=== PATIENT | female | born 1935 | race Caucasian/White ===

== ENCOUNTER 2017-12-24 11:33 | Inpatient (IN) | payer MEDICARE, OTHER ==
[~2017-12-24] VITALS: Ht 157.5 cm; Wt 63.0 kg
[2018-01-03] MEDS ORDERED: DURAGESIC1 EAC2 TD (15:14)
[2018-01-03] MEDS ORDERED: DETROL LA4 MG PO (15:15)
[2018-01-03] MEDS ORDERED: PRILOSEC OTC20 MG PO (15:16)
[2018-01-03] MEDS ORDERED: MIRALAX17 GM PO (15:16)
[2018-01-03] MEDS ORDERED: VOLTAREN-XR100 MG PO (15:16)
[2018-01-03] MEDS ORDERED: VITAMIN D32000 UNI1 PO (15:17)
[2018-01-03] MEDS ORDERED: VITAMIN B122500 MCG PO (15:17)
[2018-01-03] MEDS ORDERED: VITAMIN E400 UNIT PO (15:18)
[2018-01-03] MEDS ORDERED: ENDOCET 10-3251 EACH PO (15:54)
[2018-01-03] MEDS ORDERED: DIAZEPAM5 MG PO (15:54)
[2018-01-03] MEDS ORDERED: ENALAPRIL-HCTZ1 EACH PO (15:55)
--- NOTE | 2018-01-15 12:58 | NUR ---
01/15/18 1258 Sara Putnam 1153 PT ARRIVED IN PACU SLEEPY WITH NO C/O'S. NG TO LOW INTERMITENT SUCTION. 12OO XRAY IN ROOM DOING PCXR. C/O NAUSEA AND ABD PAIN DURING XRAY. 1214 ZOFRAN 4MG IV GIVEN. 1217 FENTANYL 50MCG GIVEN IVP. UNABLE TO RATE PAIN AT THIS TIME. 1217 ANCEF 2GM IV GIVEN PER DR ORDERS. OXYGEN REMOVED AND PLACED ON BB AT 6L WITH SATS 98%. COOL CLOTH TO FOREHEAD. 1230 RESTING. REU. SATS 95% ON RA. 1240 C/O NAUSEA. PHENERGAN 6.25MG GIVEN SLOW IVP.
--- NOTE | 2018-01-15 14:43 | NUR ---
VISITED WITH PT'S DAUGHTER RANJITH AND KENZIE AFTER PT WAS MOVED FROM PACU TO M/S 109. RANJITH LOZANOTTLE EMOTIONAL, SHE STATED JUST A LITTLE RELEASE AFTER THE SURGERY. SURGERY MUCH MORE EXTENSIVE THAN PLANNED ACCORDING TO RANJITH. PT STILL NOT QUITE AWAKE. WILL CONTINUE TO FOLLOW NEEDED
--- NOTE | 2018-01-15 14:44 | NUR ---
1425 - VS WITHING NL, MORE AWAKE, NGT PATENT TO LOW INTERMITENT WALLL SUCTION. ABD DRESSING CDI, HALLE AND ONQ PUMP PATENT. FAMILY AT BEDSIDE AT BEDSIDE
--- NOTE | 2018-01-15 15:00 | NUR ---
RN IN ROOM.
--- NOTE | 2018-01-15 15:25 | NUR ---
SHAPER SETTER FENTANYL STARTED, PT INSTRUCTED ON SHAPER SETTER USAGE AND SIDE EFFECTS. STATED UNDERSTANDING. TOLERATING SIPS OF ROOM TEMP LIQUIDS, HOB ELEVATED AT 45o. NGT R NARE TO LCWS, WITH VERY SCANT AMOUNT OF CLEAR DRAINAGE. ABD DRESSING MIDLINE MEPILEX AND OPSITE DRESSING CDI, HALLE WITH SANGUINEOUS DRAINAGE, AND ONQ PUMP X2 SITES WITH BROWN DRAINAGE. F/C PATENT DRAINING DARK YELLOW URINE. SCDS IN PLACE. PT MORE AWAKE VISITING WITH FAMILY.
--- NOTE | 2018-01-15 16:25 | NUR ---
AWAKE, VISITING WITH FAMILY, NO C/O PAIN, NGT TO LIWS, DRAINING SCANT AMOUNT OF CLEAR DRAINAGE. HOB ELEVATED AT 45o, TOLERATING LIQUIDS W/O PROBLEMS. ABD DRESSING CDI, HALLE PATENT, ON Q PUMP PATENT, NO C./O PAIN, NO C/O N/V
--- NOTE | 2018-01-15 17:46 | NUR ---
PT AWAKE, HOB AT 30o, PER ORDERS, NGT/HILL REPAIR TUBE ON RIGHT NARE TO LOW INTERMITENT WALL SUCTION, DRAINING SCANT AMOUNT OF CLEAR FLUID. PT ON CLEAR FLUIDS, TOLERATING WELL. ABD WITH VERY HYPOACTIVE BOWEL TONES, DENIES PASSING GAS. aBD MIDLINE DRESSING WITH MEPILEX COVERED WITH OPSITE DRESSING CDI. HAS 2 SITES FOR ON Q PUMP, AND HALLE SITE WITH SANGUINEOUS DRAINAGE. PATENT. SCDS INPLACE, ANKLES EDEMA 1+. IV R W, ANTIQUE DEALER FENTANYL IN PLACE. F/C PATENT , DRAINING DARK YELLOW URINE. ON CONT PULSE OX IN PLACE, NO SOB. PT HAS BEEN COMFORTABLE, FAMILY AT BEDSIDE. 1 PERSON ASSIST, PT AWARE OF NEED TO GET UP IN AM, AND NO LOWERING OF HEAD, NO ICE, CLEAR LIQUID DIET. COOPERATIVE WITH INSTRUCTIONS
--- NOTE | 2018-01-15 19:30 | NUR ---
BEDSIDE REPORT RECEIVED FROM RN GABINO, PT AWAKE, RATES PAIN 8/10 IN RIBS, USING INSPECTOR RAW QUARTZ PUMP. HOB ELEVATED TO 30 DEGREESS, SCDS ON, IVF INFUSING WNL 85 ML/HR. FENTANYL PATCH IN PLACE LEFT SHOULDER. HALLE DRAIN MINIMAL SANGUINOUS DRAINAGE. MEPILEX CDI. CONT PULSE OX IN PLACE, 93% SPO2, HR 111. PT GIVEN CALL LIGHT, INSPECTOR RAW QUARTZ PUMP BUTTON, WITHIN REACH. NO REQUESTS AT THIS TIME.
--- NOTE | 2018-01-15 19:43 | NUR ---
DR. KHANNA IN PT ROOM TO DISCUSS SURGERY, PLAN OF CARE AT THIS TIME, PT'S QUESTIONS ANSWERED.
--- NOTE | 2018-01-15 19:46 | NUR ---
PATIENT RESTING IN BED. HALLE DRAINED. GARBAGE EMPTIED. FRESH ICE WATER. CALL LIGHT WITHIN REACH. NO OTHER NEEDS AT THIS TIME.
--- NOTE | 2018-01-15 21:16 | NUR ---
PT ASSESSMENT COMPLETE AT THIS TIME, PT ALERT AND ORIENTED X 3, ABDOMEN SOFT, BOWEL TONES ACTIVE X 4, MEPILEX CDI, ON Q PUMP TUBING SMALL AMT SANGUINOUS DRAINAGE NOTED LEFT SIDE. PT HAS SMALL AMT SANGUINOUS DRAINAGE IN HALLE DRAIN. RATES PAIN 9/10 BILATERALLY IN RIBS, GIVEN MARBLE SUPERVISOR PUMP BUTTON, USING AT THIS TIME. IV FLUSHED GOOD BLOOD RETURN, INFUSING WNL. RICHARDS DRAINING WNL. CALL LIGHT IN REACH, PT FAMILY IN ROOM, QUESTIONS ANSWERED.
--- NOTE | 2018-01-15 21:55 | NUR ---
IN PT ROOM, IV SITE ASSESSED, WNL GOOD BLOOD RETURN, FLUSHES EASILY. DAUGHTER GIVEN BEDDING FOR COUCH. PT LYING IN BED, HOB ELEVATED 30 DEGREES, APPEARS DROWSY, CLOSING EYES RN LEAVING ROOM. SCDS ON. NGT IN PLACE. SPO2 95% ON ROOM AIR. CALL LIGHT IN REACH.
--- NOTE | 2018-01-15 23:57 | NUR ---
CHECKED ON PT, APPEARS TO BE SLEEPING, EYES CLOSED, BREATHING NON-LABORED, HOB ELEVATED, IVF INFUSING, SCDS ON. LIGHTS OFF IN ROOM.
--- NOTE | 2018-01-16 01:08 | NUR ---
IN PT ROOM, IV PUMP BEEPING, PT APPEARS TO BE SLEEPING, BREATHING NON-LABORED, EYES CLOSED, SATURAING WNL ON RA, CONT. PULSE OX ON. SCDS ON, IVF INFUSING WNL. LIGHTS OFF IN ROOM.
--- NOTE | 2018-01-16 01:55 | NUR ---
PT ASSESSMENT COMPLETE, BOWEL TONES PRESENT, HYPOACTIVE X 4, ABDOMEN SOFT, TENDER WITH PALPATION IN LLQ. NO NEW DRAINAGE NOTED AT ON Q PUMP INSERTION SITES. MEPILEX CDI. PT STATES PAIN "OKAY, I'VE BEEN SLEEPING". SPO2 WNL ON RA, CONT PULSE OX IN PLACE. LUNGS CLEAR THROUGHOUT ALL LOBES. IVF INFUSING WNL. ON Q BULB EMPTIED 15 ML SEROSANGUINOUS FLUID. NO DRAINAGE NOTED FROM NGT. RICHARDS EMPITED 100 MLS AND VITALS COMPLETE AT THIS TIME. STAT LOCK PLACED ON PT'S LEG TO FACILITATE DRAINAGE. CALL LIGHT IN REACH, LIGHTS OFF IN ROOM.
--- NOTE | 2018-01-16 04:42 | NUR ---
PT APPEARS TO BE SLEEPING AT THIS TIME, EYES CLOSED, BREATHING NON-LABORED, SPO2 94% ON ROOM AIR, NGT IN PLACE, IVF INFUSING, SCDS ON. HOB ELEVATED.
--- NOTE | 2018-01-16 05:25 | NUR ---
MEPILEX CDI THROUGHOUT SHIFT, SMALL AMT SANGUINOUS DRAINAGE AT ON Q PUMP INSERTION SITES, HALLE DRAINING SMALL AMT SEROSANGUINOUS FLUID. IVF INFUSING THROUGHOUT SHIFT, PT TOLERATING CLEAR LIQUID DIET WELL. PAIN CONTROLLED WITH FENTANYL PATCH, FENTANYL SAW BOSS, AND IV TYLENOL PRN. RICHARDS CATHETER IN PLACE. PT SATURATING WNL RA, CONT PULSE OX ON. SCDS ON.
--- NOTE | 2018-01-16 06:37 | NUR ---
PHONE CALL TO DR. KHANNA TO UPDATE ON PT URINE OUTPUT THROUGHOUT SHIFT, PAIN CONTOL, DRAIN OUTPUT. ORDER TO LEAVE RICHARDS CATHETER IN FOR NOW AND DC NGT AT THIS TIME, ALLOW ONLY SIPS OF LIQUID.
--- NOTE | 2018-01-16 06:40 | NUR ---
NGT D/C'D WNL. PT INSTRUCTED TO TAKE SIPS OF WATER FOR COMFORT AT THIS TIME, PT VERBALIZED UNDERSTANDING. PT RATES PAIN 6/10 AT THIS TIME AT REST, STATES LLQ PAINFUL WITH MOVEMENT, IV TYLENOL ADMINISTERED AT THIS TIME WNL. RICHARDS CATHETER DRAINING, SCDS ON. CALL LIGHT IN REACH.
--- NOTE | 2018-01-16 08:45 | NUR ---
patient sitting up in bed. family at bedside. patient has clear liquid tray in room. reminded patient to go slow. nothing too hot or too cold. patient stating she is taking it slow. no nausea at this time. hypoactive bs. patient reported passing a small amount of flatus last night. no ng. iv fluids running wnl. scds in place.
--- NOTE | 2018-01-16 10:03 | NUR ---
CALLED DR. KHANNA FOR UPDATE ON PATIENT UOP. NEW ORDER FOR 500ML LR BOLUS.
--- NOTE | 2018-01-16 10:46 | NUR ---
PATIENT ASSISTED TO THE CHAIR WITH A TWO PERSON ASSIST. PATIENT TOLERATED WELL. NEEDING TO TREAT PAIN WITH YOUTH MINISTRY DIRECTOR DOSE BEFORE ACTIVITY. FAMILY IN ROOM. BLOUS STARTED.
--- NOTE | 2018-01-16 11:15 | NUR ---
PATIENT SITTING UP IN CHAIR. PATIENT STATING SHE IS GETTING TIRED AND WOULD LIKE TO GO BACK TO BED. PATIENT AGREED TO STAY FOR ANOTHER 30 MINUTES. PATIENTS TEMP RECHECKED. 98.7 ORAL TEMP. LARGE AMOUNT OF FAMILY IN ROOM. NO OTHER COMPLAINTS AT THIS TIME. NO NAUSEA.
--- NOTE | 2018-01-16 11:54 | NUR ---
PATIENTE ASSISTED BACK TO BED WITH 2 PERSON ASSIST. TOLERATED MOVEMENT OUT OF CHAIR WELL. PAINFUL WHEN SCOOTING BACK IN BED. HOB ELEVATED. ENCOURAGED TO PUSH TARIFF COUNSEL IF NEEDED. HALLE DRAINED FOR 15MLS OF SER SANG DRAINAGE. UOP HAS INCREASED IN RICHARDS
--- NOTE | 2018-01-16 12:26 | NUR ---
PT SITTING IN CHAIR-ALERT, ORIENTED AND SUPPORTED BY LOTS OF FAMILY. PT SAID HER PAIN IS 3, AND SHE SAID SHE IS SUPPRISING HERSELF AT HOW WELL SHE IS DOING FOLLOWING SURGERY YESTERDAY. FAMILY APPEARS TO BE DOING MUCH BETTER TODAY WELL. EXTENDED A BLESSING, WILL FOLLOW NEEDED
--- NOTE | 2018-01-16 13:13 | OR ---
[facility] [address], [place] [address] Signed DATE OF OPERATION: 01/15/2018 SURGEON: Gustavo Khanna MD PREOPERATIVE DIAGNOSES: 1. 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 2. Chronic back pain with Younger rods. POSTOPERATIVE DIAGNOSES: 1. 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 2. Chronic back pain with Younger rods. 3. Capsular disruption of spleen, inferior pole with partially herniated spleen. PROCEDURE: 1. Hill repair (reconstruction of the gastroesophageal junction with posterior gastropexy prolonged complicated difficult). 2. Intraoperative manometrics. 3. Incidental splenectomy for persistent bleeding from capsular disruption. 4. Placement of On-Q pain pump catheter. DURABLE MEDICAL EQUIPMENT TECHNICIAN: Nurse, (Donya Murphy RN). ANESTHESIA: General endotracheal. Estevan Altman CRNA and On-Q pain pump catheter with Marcaine. INDICATION: This 82-year-old white woman is a patient of Dr. Pasquale Berger, of [place], [place]. She has had nearly two years of peculiar upper abdominal symptoms, including bloating, poor oral intake, as well as a subjective sense of a bubble in the left chest. She does not have dysphagia per se, and does have occasional reflux symptoms. Her evaluations included a video esophagram confirming a complex paraesophageal hernia with much of the stomach in the chest in the retro cardiac region. Upper endoscopy shows findings consistent with this as well, but no evidence of neoplasm of the stomach, or esophagus proper. The patient has a past history of significant chronic pain syndrome related to her back, and has multiple Younger rods in place. She is on fentanyl patch for chronic pain, Valium 3 times a day, as well as oxycodone for breakthrough pain. Electronically Signed By: GUSTAVO KHANNA MD 01/16/18 1313 PATIENT NAME: SHIRA LAGUNA OPERATIVE REPORT DATE OF : 37 REPORT #: [id number] PHYSICIAN: GUSTAVO KHANNA MD PCP: PASQUALE BERGER MD REPORT IS CONFIDENTIAL AND NOT TO BE RELEASED WITHOUT AUTHORIZATION [facility] [address], [place] [address] Signed Mindful of her advanced age, and other medical comorbidities, repair of the paraesophageal hernia has been recommended by me. I have carefully reviewed with the patient, as well as her family the risks of bleeding, infection, recurrent problem, dysphagia, short or long-term, and other unforeseen complications including the possibility of splenectomy depending on findings. They understand all this and wished to proceed. FINDINGS: Indeed much of the stomach was in the chest itself. Typical thickened hernia sacs were noted in association with this complex paraesophageal hernia. Full mobility of the GE junction with division of the hernia sacs, and partial resection of them was accomplished as well. The esophagus itself appeared normal. Entry to the left pleural space was noted. A postprocedure chest x-ray showed a tiny apical pneumothorax. There was no parenchymal lung injury on the left. The patient had a small portion of the spleen densely adherent to the cardia and partially herniated to the hiatus and in the course of dissection an inferior polar decapsulation occurred, which despite every effort and prolonged and elaborate techniques, persistent oozing could not be well controlled, and ultimately culminated in splenectomy. Blood loss was 750 mL related to this in total. By conclusion good reapproximation of the right and left crura was accomplished allowing for passage of the index finger alongside the esophagus, as well as reconfigured flap valve. The repair was well secured to the pre aortic fascia in the usual way. The fundus of the stomach was additionally secured to the tendon of the diaphragm so as to avoid postoperative paraesophageal herniation once again. The pancreas was noted as normal. The drain was left in place related to the splenectomy on the unlikely chance of any pancreatic fluid leak. Intraoperative manometrics showed a peak pressure of approximately 20 mmHg over a 5 cm intraabdominal segment. The operation was prolonged, complicated, and difficult on the basis of the scar tissue and so forth. It lasted nearly 4 hours, usual time 1.5 hours. Additionally noted was an impressively elongated left lateral segment of liver, which was fully mobilized. There was surgical absence of the gallbladder, and the pylorus was normal. Electronically Signed By: GUSTAVO KHANNA MD 01/16/18 1313 PATIENT NAME: SHIRA LAGUNA OPERATIVE REPORT DATE OF : 37 REPORT #: [id number] PHYSICIAN: GUSTAVO KHANNA MD PCP: PASQUALE BERGER MD REPORT IS CONFIDENTIAL AND NOT TO BE RELEASED WITHOUT AUTHORIZATION [address] [address] Signed DESCRIPTION OF PROCEDURE: The patient was brought to the operating room, given a general endotracheal anesthetic. Consideration had been made for an epidural catheter, but given the marked distortion of her spine and prior Younger rods, the initial attempt was deemed impossible, and epidural catheter was not placed. Her fentanyl patch was allowed to remain in place, however, during course of operation. After satisfactory general endotracheal anesthesia, a Awan catheter was placed. Appropriate padding, and support was given to her given her anatomic configuration related to her spine. The abdomen was prepared with a chlorhexidine solution and draped sterilely. Preoperative antibiotic Ancef was given. Sequential compression device stockings used and heparin subcutaneously administered. A midline incision was made extending from the xiphoid to the umbilicus. The abdomen was entered without problem. There were a few adhesions inferiorly to prior low midline incision. These were taken down with electrocautery. Incision was extended inferiorly a bit to allow for good exposure. The round ligament was freed from the anterior abdominal wall. The left lateral segment of liver was quite impressively elongated. The right lobe was normal. The spleen was in the natural anatomic configuration and of normal size overall. There appeared to be surgical absence of the gallbladder. Scar tissue was noted near the gallbladder fossa. An upper hand retractor was placed. The left lateral segment of liver was freed from the diaphragmatic attachments using electrocautery. This is a an impressively elongated lobe extending well past the spleen and quite impressive indeed in its length and bulk. With meticulous care it was freed to the central tendon of the diaphragm, the left phrenic vein easily identified, and left unharmed. A thin layer of gastrohepatic omentum was incised with electrocautery better exposing the GE junction. A Bookwalter retractor was attached to the inferior aspect of the table to provide better exposure. The bulk of the left lateral segment of liver was such that it could be retracted medially thus allowing for evaluation of the GE junction. Much of the stomach was in the chest itself and attendant attachments to the inferior pole of the spleen were also noted there. The stomach was carefully withdrawn from the retrocardiac position showing typical dense hernia sacs x3. A [place] clamp was applied to the left danny of the diaphragm in distinction to the right side as is usually the case given anatomic factors and using electrocautery, the dense hernia sac attachments to the left danny were freed with Electronically Signed By: GUSTAVO KHANNA MD 01/16/18 1313 PATIENT NAME: SHIRA LAGUNA OPERATIVE REPORT DATE OF : 37 REPORT #: [id number] PHYSICIAN: GUSTAVO KHANNA MD PCP: PASQUALE BERGER MD REPORT IS CONFIDENTIAL AND NOT TO BE RELEASED WITHOUT AUTHORIZATION [facility] [address], [place] [address] Signed electrocautery. Dissection was carried anteriorly using the anterior lip of the esophageal hiatus as a counter tension, again freeing the hernia sac into the mediastinum. Entry was made into the left pleural space demonstrating the lung. There was no injury to the lung, or other problem there. This was a testimony to how high in the retrocardiac position the dissection was required. The bulky fatty tissue and blood vessels on the right side of the GE junction were carefully delineated from the right danny, and freed appropriately using blunt and electrocautery dissection, ultimately identifying the right danny more fully. Ultimately, this tissue was freed enough to allow for mobility of the GE junction. By this point there appeared to be some capsular disruption of the inferior pole of the spleen. Control was temporarily obtained with some Una powdered hemostatic material, as well as Gel-Foam and packing. Further dissection was undertaken to better define the esophagus and the hernia sacs that had been divided from it. The hernia sacs were dissected free fully and passed for pathology. At this point, the esophageal muscle fibers longitudinally oriented were well demonstrated and the GE junction was fully mobilized. Reinspection of the splenic area showed ongoing oozing despite various efforts to control this. The posterior aspect of the spleen was gently cupped and retracted medially allowing for further mobility of the upper polar portion of the spleen, which had been subsumed into the hiatus somewhat. Once this was freed, the spleen could easily be kept in the left hand, and demonstrating well the parenchymal disruption of the inferior polar aspect. The bleeding appeared to be directly from the parenchyma. Electrocautery and ultimately over-sewing with 0-chromic suture provided temporary relief from oozing, but not durably enough. Many various techniques were used to secure hemostasis in this area, but ultimately given the persistent oozing from it, and without benefit of adequate hemostasis despite every effort to do so, it was deemed simply advisable to excise the spleen. The posterior attachments of the spleen were freed with electrocautery and the spleen was mobilized fully to the midline. Application of tonsil clamps to the splenic hilum were undertaken allowing for division of the splenic veins and splenic artery. These vascular pedicles were secured with 0-silk ties doubly applied. Good hemostasis was now noted. Specimen was passed for pathology. Although it did not look to have specific pathologic features, I did consider the possibility that occult lymphoma could have accounted for the lack of hemostasis despite usual measures. Final pathology is pending of course in that regard. The tail of the pancreas was well identified and clinically appeared normal. Attention was returned to reconstruction of the GE junction. At this point, the preaortic fascia could be well demonstrated, and the left and right crura freed entirely Electronically Signed By: GUSTAVO KHANNA MD 01/16/18 1313 PATIENT NAME: SHIRA LAGUNA OPERATIVE REPORT DATE OF : 37 REPORT #: [id number] PHYSICIAN: GUSTAVO KHANNA MD PCP: PASQUALE BERGER MD REPORT IS CONFIDENTIAL AND NOT TO BE RELEASED WITHOUT AUTHORIZATION [facility] [address], [place] [address] Signed from the esophageal fibers. Anterior and posterior vagal nerve trunks were identified and preserved. Reapproximation of the esophageal hiatus was undertaken with interrupted 0-silk sutures with Arjun felt pledgets soaked in Betadine. Three such sutures were placed allowing for enough room alongside the esophagus to pass the tip of the index finger. [place] clamps were applied to the posterior and anterior phrenoesophageal bundle remnants, though they were rather minimal in amount as the hernia sacs that had been excised, subsumed some of them. The repair sutures were placed in the technique of Jesus using #1 Ethibond suture with Arjun felt pledgets soaked in Betadine. Imbrication of the anterior and posterior phrenoesophageal bundles with seromuscular bites of stomach attaching them to the preaortic fascia (now elevated by the silk sutures which had reapproximated the crura) was then undertaken. Five such repair sutures were placed. Care was taken to avoid incorporation of vagal nerve trunks. The sutures were secured with surgeon's throw knots forming a very good flap valve. The previously positioned manometric nasogastric tube was then used to provide intraoperative manometric measurement. With the general supervisor using an arterial blood pressure catheter, pullout pressures were obtained showing a peak pressure of approximately 20-25 mmHg over a 5 cm intraabdominal segment. The sutures were more fully secured. Palpation of the flap valve appeared to be quite good. A repeat pullout pressure was found to be durable with a good waveform with similar numbers. Using interrupted 2-0 silk sutures of Arjun felt pledgets soaked in Betadine, the fundus of the stomach was secured to the tendon of the diaphragm superiorly so as to avoid postoperative fundic herniation. Irrigation was undertaken, and small bleeding sites were secured with clips or electrocautery as necessary in the area of dissection. Reinspection in the area of the tail of the pancreas showed no sign of bleeding. Laparotomy packs from that site were removed. Irrigation was undertaken and the very elongated and floppy left lateral segment of liver was returned to its natural anatomic position. The manometric nasogastric tube was secured into position allowing for post operative gastric decompression. A 7 mm flat Franklin drain was positioned into the Electronically Signed By: GUSTAVO KHANNA MD 01/16/18 1313 PATIENT NAME: SHIRA LAGUNA OPERATIVE REPORT DATE OF : 37 REPORT #: [id number] PHYSICIAN: GUSTAVO KHANNA MD PCP: PASQUALE BERGER MD REPORT IS CONFIDENTIAL AND NOT TO BE RELEASED WITHOUT AUTHORIZATION [facility] [address] [place] [id number] Signed area of the tail of the pancreas on the unlikely event there would be any pancreatic juice leakage and brought out the left upper abdomen. Attention was turned towards closure. Rashida clamps were used to elevate the abdominal wall fascia and using the enclosed peel-away introducer catheters, On-Q catheters were placed in the subperitoneal space paralleling the costal margins on each side. They were subsequently attached to the Marcaine bulb reservoir. The midline fascia was reapproximated with running bidirectional #1 PDS suture. Steri-Strips were applied as was Mepilex silver sponge dressing. Total blood loss during the case was 750 mL, it was estimated by the general supervisor. She was taken after extubation to the recovery room. A postprocedure chest x-ray showed a tiny apical pneumothorax, which at this point will be observed. The operation was prolonged, complicated, and difficult mostly related to anatomic features, scarring, and advanced nature of her paraesophageal hernia, but has been accomplished safely at this point. It lasted 4 x longer than usual. MD RAO Holland/INDYL /[id number] cc: Pasquale Berger MD Copies: PASQUALE BERGER MD ~ Electronically Signed By: GUSTAVO KHANNA MD 01/16/18 1313 PATIENT NAME: SHIRA LAGUNA OPERATIVE REPORT DATE OF : 37 REPORT #: [id number] PHYSICIAN: GUSTAVO KHANNA MD PCP: PASQUALE BERGER MD REPORT IS CONFIDENTIAL AND NOT TO BE RELEASED WITHOUT AUTHORIZATION
--- NOTE | 2018-01-16 13:48 | NUR ---
PATIENT RESTING IN BED. TWO PERSON ASSIST TO ELEVATED PATIENT IN BED. PATIENT REPOSITIONED FOR COMFORT. FAMILY AT BEDSIDE. PATIENT UPDATED WITH PLAN TO AMBULATE LATER THIS AFTERNOON. PATIENT AGREED.
--- NOTE | 2018-01-16 15:42 | NUR ---
CALLED DR. KHANNA ABOUT ELEVATED BP. ORDERS ADDED. PATIENT ALSO RECIEVED NEW ORDER FOR PAIN MEDICATION. UPDATED FAMILY AND PATIENT ABOUT NEW ORDERS.
--- NOTE | 2018-01-16 17:15 | NUR ---
PATIENT ASSISTED TO THE CHAIR FOR DINNER. TOLERATING WELL WITH TWO PERSON ASSISDT. PATIENT STATING THAT PAIN WAS ABOUT 6 WITH MOVEMENT BUT SHE SAID IT FELT EASIER THAN EARIER. PATIENT WAS ALSO ASSITED TO OTHER SIDE OF BED TO AMBULATE MORE IN ROOM. PATIENT SET UP FOR DINNER ( FULL LIQUID TRAY). COLLAR CUTTER SYRINGE CHANGED.
--- NOTE | 2018-01-16 17:37 | NUR ---
PATIENT DID OKAY TODAY. AMBULATED TO CHAIR X2. IV CURRENTLY RUNNING AT TKO SINCE FENTANYL WATER PURIFIER OPERATOR IS RUNNING. ADVANCED TO A FULL LIQUID DIET. ABD HAS HYPOACTIVE BS. ON-Q PUMP. HALLE. MINIMAL OUTPUT. RICHARDS IN PLACE. UOP HAS IMPROVED. TORADOL ADDED FOR PAIN MANAGEMENT. STARTED HOME BP MEDICATION.
--- NOTE | 2018-01-16 17:43 | NUR ---
Medications reconciled with pharmacy records and patient interview
--- NOTE | 2018-01-16 19:25 | NUR ---
BEDSIDE REPORT RECEIVED FROM LAZARA AYALA. PT SITTING IN CHAIR AT THIS TIME, 92% ON ROOM AIR, HR 102, CONT. PULSE OX IN PLACE. IVF INFUSING TKO WITH FIELD COLLECTOR PUMP. RICHARDS CATHETER DRAINING. MEPILEX CDI. NO REQUESTS AT THIS TIME, CALL LIGHT IN REACH.
--- NOTE | 2018-01-16 20:15 | NUR ---
ROUNDED CHARGE. PATIENT IS RESTING IN RECLINER READING THE PAPER. PATIENT DENIES ANY COMMENTS, QUESTIONS, OR CONCERNS. NO NEEDS NOTED. CALL LIGHT AND CORK COMPOUNDER BUTTON IN REACH. DENIES PAIN.
--- NOTE | 2018-01-16 20:28 | NUR ---
PT ASSESSMENT COMPLETE. SBA TO BED FROM CHAIR, PT AMBULATING WELL WITH 1PA. MEPILEX DRESSING CDI, SMALL AMT SEROSANGUINOUS DRAINAGE IN HALLE DRAIN, INSERTION SITES CDI. PT DENIES NAUSEA, TOLERATING FULL LIQUID DIET WELL. IV FLUSHED WNL. PT C/O SOME MID STERNAL PAIN, "HEAVINESS". BP 98/38 (54) RIGHT ARM, 77/42 (50) LEFT ARM, MD NOTIFIED OF PT C/O PAIN AND BLOOD PRESSURES WELL URINE OUTPUT. PT STATES "FEELS FINE" OTHERWISE. ALERT AND ORIENTED X 3. DAUGHTER IN ROOM. SCDS ON. CSM INTACT BUE, BLE. RICHARDS DRAINING. CALL LIGHT IN REACH.
--- NOTE | 2018-01-16 21:50 | NUR ---
PT RATES PAIN 6/10 AT THIS TIME, STATES PAIN HAS IMPROVED. SPO2 92% ON ROOM AIR. RICHARDS CATHETER EMPTIED AT THIS TIME, 150 ML YELLOW CONCENTRATED URINE. PT GIVEN APPLE JUICE REQUESTED. NO ADDL REQUESTS. CALL LIGHT IN REACH, PT GIVEN SPANISH TUTOR BUTTON.
--- NOTE | 2018-01-16 22:45 | NUR ---
AROUND 2029 ASSISTED LAZARA MELENDEZ TO PUT PATIENT TO BED. NURSE WITH PATIENT.
--- NOTE | 2018-01-16 23:56 | NUR ---
CHECKED ON PT, APPEARS TO BE SLEEPING, EYES CLOSED, SPO2 92% ON RA, BREATHING SHALLOW, NON-LABORED, EQUAL CHEST RISE BILATERALLY. IVF INFUSING SCDS ON. LIGHTS OFF IN ROOM.
--- NOTE | 2018-01-17 01:54 | NUR ---
CHECKED ON PT, APPEARS TO BE SLEEPING, EYES CLOSED, HOB ELEVATED, BREATHING NON-LABORED, IVF INFUSING TKO, SPO2 90% ON RA, SCDS ON. LIGHTS OFF IN ROOM.
--- NOTE | 2018-01-17 02:40 | NUR ---
PT ASSESSMENT COMPLETE AT THIS TIME, RICHARDS CATHETER EMPTIED 300 ML YELLOW URINE. MEPILEX DRESSINGS CDI, ON Q INSERTION SITES CDI, SMALL AMT SEROSANGUINOUS FLUID IN HALLE DRAIN. BOWEL TONES ACTIVE X 4, ABD SOFT, PT RATES PAIN 3/10 AT THIS TIME, EXTRACTOR OPERATOR SOLVENT PROCESS PUMP BUTTON IN REACH, SPO2 92% ON ROOM AIR, CONT. PULSE OX IN PLACE. SCDS ON. CALL LIGHT IN REACH. PT GIVEN APPLE JUICE REQUESTED.
--- NOTE | 2018-01-17 04:59 | NUR ---
PT APPEARS TO BE SLEEPING, EYES CLOSED, BREATHING NON-LABORED, SPO2 90% ON RA. LIGHTS OFF IN ROOM, SCDS ON, IVF INFUSING TKO. WILL CONTINUE TO MONITOR.
--- NOTE | 2018-01-17 05:28 | NUR ---
PT UP IN CHAIR AT START OF SHIFT AMBULATING WITH 2P SBA BACK TO BED, TOLERATING AMB. WELL. PAIN WELL CONTROLLED W FENTANYL PATCH, FENTANYL ON SITE PROPERTY MANAGER. PT TOLERATING FULL LIQUID DIET WELL, DENIES NAUSEA. SATISFACTORY URINE OUTPUT W RICHARDS. SCDS IN PLACE. MIN SS FLUID OUTPUT HALLE DRAIN. DRESSINGS CDI.
--- NOTE | 2018-01-17 06:38 | NUR ---
LAZARA CUTLER NOTIFIED RE VITAL SIGNS.
--- NOTE | 2018-01-17 07:30 | NUR ---
JUST FINISHED WITH REPORT. TRAIN CONDUCTOR AVAIALBALE FOR PATIENT'S PAIN AND PAIN IS UNDER CONTROL AT THIS TIME. ABD DRESSING CDI. HALLE HAS MINIMAL SEROUS DRAINAGE. PATIENT GOING TO REST A WHILE LONGER.
--- NOTE | 2018-01-17 08:24 | NUR ---
PATIENT UP IN BED, USING "IS" FINISHED WITH BREAKFAST. CALL LIGHT IN REACH
--- NOTE | 2018-01-17 09:45 | NUR ---
ASSESSMENT COMPLETE. PATIENT'S PAIN UNDER CONTROL. PATIENT VISITING WITH FAMILY AT THIS TIME.
--- NOTE | 2018-01-17 13:34 | NUR ---
PT SITTING UP IN BED, HAVING BREATHING TREATMENT. SHE SEEMED ALERT AND ORIENTED, AND SOMEHOW WAS ABLE TO WAVE AND SMILE MY WAY. LOTS OF FAMILY PRESENT, EXTENDED A BLESSING-WILL CONTINUE TO FOLLOW NEEDED
--- NOTE | 2018-01-17 15:00 | NUR ---
PATIENT HAVING SOME INCREASED PAIN NOW AFTER PT HAS BEEN FINISHED FOR AWHILE. PATIENT ABD PAIN 6/10 AND LT SHOULDER PAIN 4/10. I ASKED PATIENT IF SHE HAD BEEN USING HER FOREST LOGISTICS MANAGER AND SHE SAID NOT VERY OFTEN. INFORMED PATIENT THAT SHE STARTS DOING MORE WITH PT SHE MAY NEED TO USE HER FOREST LOGISTICS MANAGER MORE OFTEN AND SHE VERBALIZED UNDERSTANDING. ALL ABD DRESSINGS REMAIN CDI. RICHARDS STILL DRAINING SUFFICIENT URINE. FAMILY STILL AT BEDSIDE VISITING.
--- NOTE | 2018-01-17 15:26 | NUR ---
RICHARDS AND RITESH GARCIA EMPTIED AND RECORDED. PASSED INFORMATION TO PRIMARY NURSE. PT WAS LEFT WITH CALL LIGHT AND COMMERCIAL SHEET METAL FOREMAN REMOTE IN REACH. TUBING WAS CHECKED AND ADJUSTED FOR RITESH GARCIA. PT INFORMED TO NOT BE AFRAID OF USING COMMERCIAL SHEET METAL FOREMAN WHEN IN PAIN.
--- NOTE | 2018-01-17 17:00 | NUR ---
EMPTIED MAURICE, FAMILY IN ROOM CALLLIGHT IN REACH
--- NOTE | 2018-01-17 18:40 | NUR ---
PATIENT IN BED, FAMILY IN ROOM. VITALS AND I/OS RECORDED. RICHARDS EMPTIED. CALL LIGHT IN REACH NOT OTHER NEEDS AT THIS TIME
--- NOTE | 2018-01-17 19:00 | NUR ---
RECEIVED BEDSIDE REPORT FROM DAY SHIFT NURSE. PT IN BED ON RA, RESPIRATIONS ARE EQUAL AND NONLABORED. RICHARDS IN PLACE, DRAINING CLEAR YELLOW URINE.TUBE MACHINE OPERATOR PUMP IN USE. PT REPORTS PAIN OF 6/10. CONT PULSE OX IN PLACE. HR 81 O2 94%. LR INFUSING AT 85ML/HR. SCD'S IN [place]. DRESSING IS C/D/I. SMALL AMOUNT OF SEROSANG DRAINAGE. ON-Q PUMP IN PLACE. CALL LIGHT WITHIN REACH. REPORTS NO OTHER NEEDS AT THIS TIME.
--- NOTE | 2018-01-17 19:00 | NUR ---
GIVING REPORT TO FISHER DIVING. PATIENT HS NEW FENTANYL PATCH TO THE BACK OF HER RT SHOULDER. PAIN HAS BEEN FAIRLY WELL CONTROLLED MOST OF THE DAY BETWEEN PATCH AND SENIOR SYSTEMS ADMINISTRATOR USE, BUT PATIENT HAS BEEN WORKING WITH PT AND HAS HAD MORE PAIN THIS AFTERNOON. ENCOURAGED PATIENT TO USE HER SENIOR SYSTEMS ADMINISTRATOR MORE OFTEN NOW THAT SHE IS MOVING AROUND MORE, BUT SHE SEEMS TO BE FORGETFUL IN USING THE SENIOR SYSTEMS ADMINISTRATOR, POSSIBLY DUE TO TH DISTRACTION OF MANY VISITORS TODAY. ASKED THE NIGHTSHIFT TO CONTINUE ENCOURAGING SENIOR SYSTEMS ADMINISTRATOR USE AND POSSIBLY START GIVING THE TORADOL. ABD DRESSINGS REMAIN CDI. LEFT SIDE HALLE DRAIN HAS BEEN PUTTING OUT SMALL AMOUNTS OF SEROSANGUINOUS FLUID, MORE SEROUS IN NATURE. BOWEL TONES HAVE BEEN ACTIVE. RICHARDS DRAINING CLEAR YELLOW URINE QS. IV PATENT AND RUNNING CONTINOUS LR SOLUTION. UPPER GI SCHEDULED FOR PATIENT TOMORROW AT 11AM AND PATIENT TO BE NPO AFTER MIDNIGHT. THIS WAS PASSED ON TO FISHER DIVING NURSE. PATIENT STILL ON FULL LIQUID DIET AT THIS TIME.
--- NOTE | 2018-01-17 21:30 | NUR ---
ASSESSMENT COMPLETED. IV FLUSHED WITH NS. NO PAIN, SWELLING, REDNESS AT IV SITE. LUNGS SOUND CLEAR. PT REPORTS PAIN /10. BOWEL TONES ACTIVE. PULSES +2. DRESSING C/D/I. SMALL SMOUNT SEROSANG IN HALLE DRAIN. PT ON 2L O2 AND CON PULSE OX. SATURATION 94%. CALL LIGHT WITHIN REACH. REPORTS NO NEEDS AT THIS TIME. CALL LIGHT WITHIN REACH.
--- NOTE | 2018-01-17 22:40 | NUR ---
PT APPEARS TO BE SLEEPING. RESPITORY RATE IS 16 EQUAL AND NONLABORED. HE IS 89BPM, O2 SATURAITON IS 94% ON 2L NC. DISPATCHER RELAY DOSE SET TO 20MCG.
--- NOTE | 2018-01-17 22:41 | NUR ---
VITALS AND I&OS DONE AND CHARTED. BEDSIDE TABLE AND CALL LIGHT WITHIN REACH. PT NEEDS NOTHING AT THIS TIME.
--- NOTE | 2018-01-18 | NUR ---
PT PLACED ON NPO STATUS.
--- NOTE | 2018-01-18 03:36 | NUR ---
PT APPEARS TO BE COMFORTABLE. RESPITORY RATE IS 16, HR IS 84 BPM, O2 SATURATION IS 94% ON 2L NC. RESPIRAITONS ARE EQUAL AND NONLABORED. JAVA WEB SERVICES DEVELOPER DOSE SET TO 20MCG. CONT PULSE OX IN PLACE.
--- NOTE | 2018-01-18 05:25 | NUR ---
PT SLEPT THROUGHOUT THE NIGHT. PAIN DECREASED TO 3/10 THROUGHOUT THE NIGHT. SENIOR LINUX UNIX ADMINISTRATOR PUMP CONTROLING PAIN WELL. RESPIRATIONS HAVE BEED 16 ALL NIGHT,. CONT PULSE OX IN PLACE, SATURATIONS BETWEEN 92-96% ON 2L NC. LR INFUSING @ 85. HALLE DRAIN MINIMAL SEROSANG. ON Q PUMP IN PLACE. DRESSING C/D/I. MEPLEX AND OPSITE FOR HERNIA REPAIR C/D/I. ABDOMEN TENDER,. R ARM B/P ONLY. POD 3. PT HAS BEED NPO SINCE MIDNIGHT
--- NOTE | 2018-01-18 06:07 | NUR ---
EMPTIED GARBAGES AND CLEANED UP HIS ROOM.
--- NOTE | 2018-01-18 06:49 | NUR ---
VITALS AND I&OS DONE AND CHARTED. EMPTIED GARBAGES. BEDSIDE TABLE AND CALL LIGHT WITHIN REACH. PT NEEDS NOTHING ELSE AT THIS TIME.
--- NOTE | 2018-01-18 08:30 | NUR ---
PATIENT GOING TO RADIOLOGY. IV NS LOCKED AND FENTYNL SORTER LUMBER STRAIGHTENER DC'D. PATIENT PAIN UNDER CONTROL AT 310 AT THIS TIME.
--- NOTE | 2018-01-18 10:50 | NUR ---
STUDENT JES WILL DO AM AND AFTERNOON VITALS AND I/OS.
--- NOTE | 2018-01-18 11:00 | NUR ---
THIS IS A LATE ENTRY FOR 1000 FOCUSED ASSESSMENT. PT LUNGS WERE EQUAL AND CLEAR ON THE RIGHT UPPER AND LOWER LOBES. THE LEFT UPPER LOBES WERE CLEAR,BUT THE LEFT UPPER PORTION OF THE LOWER LOBE HAD CRACKLES. PT HAD BEEN ON CONTINOUS LR AT 85MLS/HR FLUIDS DC'D PER DOCTOR. HEART SOUNDS WERE EQUAL IN RATE, RHYTHM, AND QUALITY. NO MURMURS, RUBS, OR GALLOPS. PT'S SKIN IS DRY AND WARM. SCATTERED BRUISING ON UPPER EXTREMITIES. PT STILL EXPERIENCING NUMBNESS AND TINGLING IN BOTH LOWER EXTREMITIES. THIS IS PT'S BASELINE. ASSISTED PT TO A CHAIR AND ASSISTED PT WITH PUTTING ON UNDER GARMENTS WITH PAD TO PREVENT URINARY LEAKAGE. PT STATED THAT SHE DRIBBLES AND WEARS PADS AT HOME. PT NEEDED MINIMAL ASSITANCE DURING THIS PROCESS.
--- NOTE | 2018-01-18 11:06 | NUR ---
PATIENT UP IN HER RECLINER AND IS CURRENTLY HAVING 7/10 LLQ PAIN AT THIS TIME AND WAS GIVE 2MG PO DILAUDID.
--- NOTE | 2018-01-18 11:30 | NUR ---
LATE ENTRY FOR 904. PT TO IMAGING AT 0840 ACCOMPANIED BY STUDENT. PT TOLERATED PROCEDURE WELL. PT BACK IN ROOM, ASSISTED BACK TO BED, CALL LIGHT IN REACH. FAMILY AT BEDSIDE, DENIES FURTHER NEEDS. UPDATED PRIMARY NURSE.
--- NOTE | 2018-01-18 11:55 | NUR ---
PATIENT'S PAIN HAS NOW DECREASED TO 2/10 AFTER DILAUDID. PATIENT EATING LUNCH AND VISITING WITH FAMILY AT THIS TIME.
--- NOTE | 2018-01-18 12:25 | NUR ---
PT'S CRACKLES ARE STILL PRESENT IN THE UPPER PROTION OF THE LEFT LOWER LOBE. RIGHT UPPER AND LOWER LOBE WERE EQUAL AND CLEAR. INSTRUCTED PT TO DO TWO ROUNDS OF 5 DEEP COUGHS. PT COMPLIED WITH INSTRUCTIONS. LUNGS CLEAR AFTER COUGHING. PT APPEARED TO TOLERATE ACTIVITY WELL WITH SPLINTING. ALL BOWEL TONES WERE PRESENT. NO SIGNS OF LEAKING OF PT'S HALLE DRAIN OR BANDAGES. ALL PT NEEDS MET, CALL LIGHT IN REACH. REPORTED TO PRIMARY NURSE. PT ACKNOWLEDGES THE NEED FOR ASSISTANCE TO USE THE RESTROOM OR BE PLACED BACK IN BED.
--- NOTE | 2018-01-18 12:57 | NUR ---
PATIENT IN BR, WILL CALL WHEN FINISHED. GARBAGE EMPTIED, PATIENT DENIES ANY NEEDS AT THIS TIME.
--- NOTE | 2018-01-18 13:18 | NUR ---
PT SITTING IN BED, WITH LOTS OF FAMILY STILL AROUND. PT ON O2 NC, BUT MUCH MORE AWARE TODAY. FAMILY REQUESTED PRAYER, WILL FOLLOW NEEDED
--- NOTE | 2018-01-18 13:42 | NUR ---
PATIENT IN BED WATCHING TV, FAMILY IN ROOM. PATIENT HAS BEEN UNABLE TO URINATE SINCE D/C OF RICHARDS. CALL LIGHT IN REACH NO OTHER NEEDS
--- NOTE | 2018-01-18 14:56 | NUR ---
PATIENT'S PAIN STARTING TO INCREASE IN THE LLQ PATIENT DISCRIBES IT AN "AN ACHE THAT JUST HURTS" AND IS 4/10 AT THIS TIME. MEDICATED WITH 2MG PO DILAUDID TO GET AHEAD OF THE PAIN.
--- NOTE | 2018-01-18 17:26 | NUR ---
PATIENT HAS BEEN OUT OF BED IN THE RECLINER TODAY AND TOLERATED THIS WELL. PATIENT HAS AMBULATED MULTIPLE TIMES WITH 2PSBA AND WALKER AND ALSO TOLERATED THIS WELL. RICHARDS CATH WAS DC'D THIS AM AND PATIENT HAS ONLY VOIDED 50 MLS AFTER RICHARDS DC'D, BUT BLADDER SCAN WAS JUST DONE SHOWING 136MLS IN THE BLADDER. WAS CALLED AND INFORMED OF THIS RESULT AND WE ARE JUST TO MONITOR THE PATIENT AT THIS TIME. PATIENT LUNGS SOUNDED WET ON THE AM ASSESSMENT AND WAS INFORMED AND IV WAS SALINE LOCKED AND OPEN SOURCE DEVELOPER DC'D IN THE AM. PATIENT IS TAKING PO FLUIDS WELL. PAIN HAS RANGED FROM 2/10 TO 8/10 TODAY AND HAS BEEN BETTER CONTROLLED IN THE AFTERNOON BETTER WITH THE PO DILAUDID. PATIENT CONTINUES TO BE ON A FULL LIQUID DIET PATIENT INFORMS ME THAT AT THIS TIME SHE IS ACTUALLY NOT HURTING AND IS QUITE COMFORTABLE. FAMILY CURRENTLY AT BEDSIDE AND PATIENT IS FEEDING HERSELF DINNER. CAME IN THIS EVENING AND TALKED WITH THE PATIENT AND HER FAMILY AND DC'D THE MARCAINE PUMP FROM THE PATIENT'S ABD. PER PATIENT MAY GET TO GO HOME TOMORROW.
--- NOTE | 2018-01-18 17:28 | NUR ---
PATIENT IN BED, IN ROOM, FAMILY IN [place] RN MISAEL FINISHED WITH BLADDER SCAN, PATIENT STILL HAVING VERY LITTLE OUTPUT. VITSALS AND I/OS CHARTED. CALL LIGHT IN REACH. N OTHER NEEDS
--- NOTE | 2018-01-18 20:00 | NUR ---
RECEIVED BEDSIDE REPORT FROM DAY SHIFT RN. PT IN BED WITH FAMILY AT BEDSIDE. REPORTS PAIN 8/10 IN LEFT SHOLDER. EDUCATED ON RELIEVING FACTORS. INCISION IS APPROXIMATED WITH STERISTRIPS IN PLACE. HALLE DRAIN IS INTACT AND DRAINING SMALL AMOUNT OF SEROSANG. PT IS SL IN LEFT WRIST. SCD'S IN PLACE. PT REPORTS NO OTHER NEEDS AT THIS ITME. CALL LIGHT WITHIN REACH.
--- NOTE | 2018-01-18 20:19 | NUR ---
ROUNDED CHARGE. PATIENT IS RESTING IN BED WATCHING TV. PATIENT DENIES ANY COMMENTS, QUESTIONS, OR CONCERNS. NO PAIN NOTED. CALL LIGHT IN REACH.
--- NOTE | 2018-01-18 20:26 | NUR ---
AT 1615 WAS REMOVING A MARCAINE PUMP FROM PATIENT'S SURGICAL SITE. DISCUSSED WITH THAT PATIENT WAS HAVING 6/10 LEFT CHEST WALL PAIN AT THIS TIME AND 2MG PO DILUADID GIVEN AND WAS SCANNED IN EMAR WITH PATIENT'S FAMILY WITNESSES BUT THE SCAN DID NOT SAVE FOR SOME REASON. PATRICIA ACE DNS, YAN THE NUCLEAR PLANT TECHNICAL ADVISOR, AND MAGNO THE NIGHTSWYFT RN WERE ALL INFORMD OF THIS. TRIED TO CALL THE PHARMACY WELL, BTU GOT NO ANSWER AT THIS TIME.
--- NOTE | 2018-01-18 21:30 | NUR ---
TITRATED PT TO RA. SATURATION AT THIS TYIME 94% HEART RATE 81. PT OOB WITH 2PA TO BATHROOM. PT APPEARS TO BE STABLE AND ABLE TO TRANSFER MOSTLY INDEPENDENTELY. PT WILL BE CHANGED TO SBA. CALL LIGHT WITHIN REACH.
--- NOTE | 2018-01-18 21:45 | NUR ---
SBA BACK TO BED. PT REPORTS PAIN 10/13, SAID THE TORIDOL REALLY HELPED. CALL LIGHT WTIHIN REACH. REPORTS NO OTHER NEEDS AT THIS TIME
--- NOTE | 2018-01-19 00:17 | NUR ---
PT APPEARS TO BE SLEEPING. RESPIRATIONS ARE EQUAL AND NONLABORED. O2 SATURATION IS 92% ON RA HEART RATE 71. CALL LIGHT WITHIN REACH.
--- NOTE | 2018-01-19 02:05 | NUR ---
PT APPEARS TO BE SLEEPING. O2 94% ON RA. PULSE 74. RESPIRATIONS EQUAL AND NONLABORED. CALL LIGHT WITHIN REACH, HOB ELEVATED TO [address]
--- NOTE | 2018-01-19 04:28 | NUR ---
PT APPEARS TO BE SLEEPING. RESPIRATIONS EQUAL AND NON LABORED. O2 95% ON RA. PULSE 82. CALL LIGHT WTIHIN REACH.
--- NOTE | 2018-01-19 06:06 | NUR ---
VITALS AND I&OS DONE AND CHARTED. BEDSIDE TABLE AND CALL LIGHT WITHIN REACH. EMPTIED GARBAGES.
--- NOTE | 2018-01-19 06:20 | NUR ---
pt had a good night. dc'd cont pulse ox. pt saturations wnl. pain medication given at 0600. 4mg dilaudid and prn toridol given. voided 500ml this am. pain well controlled. incision has no drainage. issac drain draining small amount serosang. full liq diet tollerating well. sba with minimal assistance. and fww.
--- NOTE | 2018-01-19 08:25 | NUR ---
PATIENT SITTING UP IN RECLINER EATING BREAKFAST AND FAMILY HAS JUST ARRIVED TO VISIT.
--- NOTE | 2018-01-19 11:11 | NUR ---
VITALS AND I&Os DONE. FAMILY MEMBERS IN ROOM. CALL LIGHT WITHIN REACH. NO OTHER NEEDS AT THIS TIME.
[2018-01-19] MEDS ORDERED: HYDROMORPHONE HC2 MG PO (11:22)
--- NOTE | 2018-01-20 13:01 | DS ---
[facility] [address], [place] [address] Signed ADMISSION DATE: 01/15/2018 DISCHARGE DATE: 01/19/2018 REASON FOR ADMISSION: Hill repair for complex paraesophageal hernia. HISTORY OF PRESENT ILLNESS: This 83-year-old white woman is a patient Dr. Pasquale Berger of [place], [place], and has had 2 years of peculiar upper abdominal symptoms, including bloating, poor oral intake, a subjective sense of bubble in the left chest and episodic dysphagia, occasional reflux and regurgitation of "slime." Advanced evaluation included video esophagram confirming a complex paraesophageal hernia with much of the stomach in the left chest in the retrocardiac position. An upper endoscopy showed findings consistent with this, but without evidence of neoplasm of stomach, esophagus, or Pimentel's epithelium. Notably she does have significant history of chronic pain syndrome related to her back with multiple Younger rods in place, and has chronic pain management including fentanyl patch, Valium 3 times a day and oxycodone on a routine basis. She is admitted at this time to undergo Hill posterior gastropexy for repair of the complex paraesophageal hernia. PERTINENT PHYSICAL EXAMINATION: GENERAL: A thin, but alert and oriented white woman who looks to be in no acute distress. She does have marked spinal deformity. CHEST: Shows diminished breath sounds. HEART: Regular. ABDOMEN: Nondistended and generally soft. There is no focal mass or tenderness. HOSPITAL COURSE: On January 15, 2018, she underwent Hill repair (reconstruction of the gastroesophageal junction with posterior gastropexy) and relocation of her stomach back to the abdomen.A complex paraesophageal hernia was noted. Intraoperative manometrics were undertaken as well. 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 Postoperatively she was maintained with a decompressive manometric tube, and allowed to have liquids. Her fentanyl patch was maintained and an On-Q pain pump catheter was in Electronically Signed By: GUSTAVO KHANNA MD 01/20/18 1301 PATIENT NAME: SHIRA LAGUNA DISCHARGE SUMMARY DATE OF : 37 REPORT #: [id number] PHYSICIAN: GUSTAVO KHANNA MD PCP: PASQUALE BERGER MD REPORT IS CONFIDENTIAL AND NOT TO BE RELEASED WITHOUT AUTHORIZATION [facility] [address], [place] [address], as well as a BOX BLANK MACHINE FEEDER device. IV Tylenol was also administered with good benefit. A drain had been placed in the left upper quadrant following splenectomy, though there was no known injury to the pancreas. A post procedure amylase level was elevated to 241. The drainage abated rather rapidly postoperatively. Her initial postoperative hematocrit was 33, but did progressively decline overtime ultimately settling at 27.7. Her platelet count did not become markedly elevated, and is noted to be only 256,000 by the day of discharge. Her postoperative course was one of progressive improvement. Her nasogastric tube was removed postoperative day one and she was advanced from liquids to full liquids and ultimately a mechanical soft diet without problem. She had no evidence of dysphagia or reflux symptoms. An upper GI was performed on Thursday, January 18, 2018, confirming the stomach well positioned below the diaphragm. There were no untoward anatomic findings otherwise. By the day of discharge, she is ambulating with assistance, tolerating oral intake to a mechanical soft diet. The left upper quadrant drain has been removed and she is doing well with the current pain medications, which has included her fentanyl patch, but also Dilaudid 2-4 mg p.o. q.4 hours p.r.n. pain. She does note that Dilaudid was more effective for her back pain problem than the Percocet was, though that was not surprising. FOLLOWUP PLAN: She is to return to see me in approximately 4-6 weeks. She will see Dr. Berger in the meantime as well. She understands that although the operation will improve her gastrointestinal issue, it will not likely impact on her chronic back pain issue related to Younger rods and so on. Whether or not Dr. Berger anticipates modifying her pain medication in relation to her response to Dilaudid remains to be determined. The patient will be immunized with Pneumovax, as well as Haemophilus vaccine prior to discharge. DISCHARGE MEDICATIONS: Will include, 1. Dilaudid 2 mg tablets 2-4 mg p.o. q.4 hours p.r.n. pain #30, no refill. Electronically Signed By: GUSTAVO KHANNA MD 01/20/18 1301 PATIENT NAME: SHIRA LAGUNA DISCHARGE SUMMARY DATE OF : 37 REPORT #: [id number] PHYSICIAN: GUSTAVO KHANNA MD PCP: PASQUALE BERGER MD REPORT IS CONFIDENTIAL AND NOT TO BE RELEASED WITHOUT AUTHORIZATION [facility] [address] [place] [id number] Signed 2. Fentanyl patch 75 mcg/hour change q.72 hours. 3. Detrol LA 4 mg p.o. q.24 hours. 4. Voltaren (diclofenac) 100 mg tablet p.o. daily. 5. MiraLAX 17 g packet daily. 6. Vitamin B12, 2, 500 mcg tablets daily. 7. Vitamin D3 2000 unit tablet p.o. daily. 8. Vitamin E 400 units p.o. daily. 9. Valium 5 mg p.o. b.i.d. as needed for muscle spasm. 10. Enalapril/hydrochlorothiazide 10/25 one p.o. daily. She will discontinue her omeprazole and oxycodone at least for the time being, regarding oxycodone. DISCHARGE DIAGNOSES: 1. Complex paraesophageal hernia, status post Hill repair. 2. 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 3. Distant history of cholecystectomy with apparent splenic bleeding in the distant past. 4. Degenerative spine disease, status post complex Younger rick placement and ongoing chronic back pain. 5. Hypertension. 6. Chronic constipation. MD RAO Holland/INDYL /[id number] cc: Pasquale Berger MD Copies: PASQUALE BERGER MD ~ Electronically Signed By: GUSTAVO KHANNA MD 01/20/18 1301 PATIENT NAME: SHIRA LAGUNA DISCHARGE SUMMARY DATE OF : 37 REPORT #: [id number] PHYSICIAN: GUSTAVO KHANNA MD PCP: PASQUALE BERGER MD REPORT IS CONFIDENTIAL AND NOT TO BE RELEASED WITHOUT AUTHORIZATION
== END 2018-01-19 14:50 | disposition home or self-care (01) | DRG 327 ==
LOC: DSVR 01-15 05:30 → MS 01-15 05:30
PROVIDERS: ADMIT Surgery
PROC: 07TP0ZZ Resection of Spleen, Open Approach (ICD-10-PCS; 2018-01-15)
PROC: 4A0B7BZ Measurement of Gastrointestinal Pressure, Via Natural or Artificial Opening (ICD-10-PCS; 2018-01-15)
PROC: 0BQT0ZZ Repair Diaphragm, Open Approach (ICD-10-PCS; principal; 2018-01-15 06:45)
PROC: 0DS60ZZ Reposition Stomach, Open Approach (ICD-10-PCS; 2018-01-15 06:45)
PROC: 3E0234Z Introduction of Serum, Toxoid and Vaccine into Muscle, Percutaneous Approach (ICD-10-PCS; 2018-01-19)
DX: K44.9 Diaphragmatic hernia without obstruction or gangrene (principal); K91.71 Accidental puncture and laceration of a digestive system organ or structure during a digestive system procedure; I10 Essential (primary) hypertension; K59.09 Other constipation; K21.9 Gastro-esophageal reflux disease without esophagitis; M48.8X9 Other specified spondylopathies, site unspecified; G89.4 Chronic pain syndrome; Z88.5 Allergy status to narcotic agent; Z23 Encounter for immunization; Z88.8 Allergy status to other drugs, medicaments and biological substances; Z79.1 Long term (current) use of non-steroidal anti-inflammatories (NSAID); Z87.891 Personal history of nicotine dependence; Z79.891 Long term (current) use of opiate analgesic; Z79.899 Other long term (current) drug therapy; Y65.8 Other specified misadventures during surgical and medical care; Y92.234 Operating room of hospital as the place of occurrence of the external cause
CPT/HCPCS: 00790; 36415; 71045; 74246; 80048; 80053; 82150; 82247; 82465; 83615; 84100; 84478; 84550; 85025; 86850; 86900; 86901; 86920; 88302; 88305; 90648; 90732; 94640; 94644; 94762; 97110; 97116; 97161; G0009; J0131; J0690; J1170; J1644; J1885; J2250; J2370; J2405; J2550; J2704; J2765; J3010; J7120